=== PATIENT | male | born 1955 | race Caucasian/White ===

== ENCOUNTER 2018-06-26 21:23 | Emergency (ER) | payer OTHER ==
[~2018-06-26] VITALS: Ht 170.2 cm; Wt 59.9 kg
[2018-06-26 21:31] VITALS: BP 156/98
[2018-06-26] MEDS ORDERED: KETOROLAC TROMETHAMINE INJ 30 MG/ML VIAL ONE (21:52)
[2018-06-26] MEDS ORDERED: KETOROLAC TROMETHAMINE INJ 60 MG/2 ML VIAL IM ONE (22:00)
--- NOTE | 2018-06-26 22:25 | NUR ---
EMT BEDSIDE FOR SHOULDER IMMOBILZER AND CLAVICULAR FRACTURE SPLINT. PER MD, INCENTIVE SPIROMETER PROVIDED TO PT ALONG WITH PROPER TEACHINGS. PT DEMONSTRATED GOOD UNDERSTANDING OF INCENTIVE SPIROMETER USAGE.
[2018-06-26] MEDS ORDERED: HYDROCODONE/APAP 5/325MG 1 EACH TABLET ONE (22:29)
[2018-06-26] MEDS ORDERED: HYDROCODONE/APAP 5/325MG 1 EACH TABLET PO ONE (22:30)
== END 2018-06-26 22:39 | disposition home or self-care (01) ==
LOC: ER 21:23
DX: S42.031A Displaced fracture of lateral end of right clavicle, initial encounter for closed fracture (principal); S22.31XA Fracture of one rib, right side, initial encounter for closed fracture; I10 Essential (primary) hypertension; W01.0XXA Fall on same level from slipping, tripping and stumbling without subsequent striking against object, initial encounter; Y93.89 Activity, other specified; Y92.89 Other specified places as the place of occurrence of the external cause; Y99.8 Other external cause status
CPT/HCPCS: 29105; 71045; 73030; 96372; 99284; A4606; J1885; Z7610

== ENCOUNTER 2020-08-02 12:18 | Emergency (ER) | payer MEDICAID, OTHER ==
[~2020-08-02] VITALS: Ht 170.2 cm; Wt 75.7 kg
[2020-08-02 12:33] VITALS: BP 114/70
== END 2020-08-02 14:18 | disposition home or self-care (01) ==
LOC: ER 12:21
DX: S01.01XD Laceration without foreign body of scalp, subsequent encounter (principal); I10 Essential (primary) hypertension; X58.XXXD Exposure to other specified factors, subsequent encounter